=== PATIENT | male | born 1950 | race Hispanic/Latino ===

== ENCOUNTER 2018-06-30 21:43 | Observation (INO) | payer MEDICARE ==
[2018-06-30 22:09] LABS: BASOPHILS % (AUTO) 0.4 % (0.0-5.0); EOSINOPHILS % (AUTO) 3.5 % (0.0-8.0); HEMATOCRIT 42.3 % (42-54); LYMPHOCYTES % (AUTO) 16.4 % (21.0-51.0); MEAN CORPUSCULAR HEMOGLOBIN 29.6 pg (27.0-33.0); MEAN CORPUSCULAR VOLUME 89.8 fL (79-99); MONOCYTES % (AUTO) 5.8 % (3.0-13.0); NEUTROPHILS % (AUTO) 73.9 % (40.0-77.0); PLATELET COUNT (AUTO) 180 K/uL (130-400); RED BLOOD CELL COUNT(AUTO) 4.71 MIL/uL (4.50-6.20); RED CELL DISTRIBUTION WIDTH 14.2 % (11.0-15.5)
[2018-06-30 22:19] LABS: CREATININE 0.9 mg/dL (0.5-1.5)
[2018-06-30 22:23] LABS: ALBUMIN 3.8 g/dL (3.5-5.0); BILIRUBIN,TOTAL 0.6 mg/dL (0.2-1.0); TOTAL PROTEIN, SERUM 7.5 g/dL (6.0-8.3)
[2018-06-30 23:09] LABS: APPEARANCE,URINE Clear (CLEAR); BILIRUBIN,URINE Negative (NEGATIVE); COLOR,URINE Dark Yellow (YELLOW); GLUCOSE, URINE (UA) Negative (NEGATIVE); KETONES,URINE 15 mg/dL (NEGATIVE); LEUKOCYTE ESTERASE ,URINE Trace (NEGATIVE); NITRATE,URINE Negative (NEGATIVE); OCCULT BLOOD,URINE Negative (NEGATIVE); PH,URINE >=9.0 (5.0-8.0); PROTEIN,URINE POS 2+ (NEGATIVE)
[2018-06-30 23:10] LABS: BACTERIA,URINE None Seen /HPF (None Seen); MUCUS,URINE Rare LPF (None Seen); RBC,URINE None Seen /HPF (0-1); SQUAMOUS EPITHELIAL CELL,UR Rare /HPF (0-2); WBC,URINE 0-1 /HPF (0-1)
[2018-06-30] MEDS ORDERED: ONDANSETRON HCL 4 MG/2 ML VIAL ONE (23:39)
[2018-06-30] MEDS ORDERED: MORPHINE SULFATE 4 MG/1ML SYG ONE (23:39)
[2018-07-01] MEDS ORDERED: DIATR MEGLU/DIATRIZOATE SODIUM 30 ML BOTTLE ONE (01:37)
[2018-07-01] MEDS ORDERED: DILTIAZEM HCL 5 MG/ML 10 ML VIAL IV ONE (03:29)
[2018-07-01] MEDS ORDERED: LORAZEPAM 2 MG/ML 1 ML VIAL ONE (04:30)
[2018-07-01] MEDS ORDERED: 1/2 NORMAL SALINE 1,000 ML IV ONE (05:11)
[2018-07-01 06:19] LABS: BASOPHILS % (AUTO) 0.3 % (0.0-5.0); EOSINOPHILS % (AUTO) 0.9 % (0.0-8.0); HEMATOCRIT 41.9 % (42-54); LYMPHOCYTES % (AUTO) 6.4 % (21.0-51.0); MEAN CORPUSCULAR HEMOGLOBIN 29.7 pg (27.0-33.0); MEAN CORPUSCULAR VOLUME 89.8 fL (79-99); MONOCYTES % (AUTO) 5.9 % (3.0-13.0); NEUTROPHILS % (AUTO) 86.5 % (40.0-77.0); PLATELET COUNT (AUTO) 176 K/uL (130-400); RED BLOOD CELL COUNT(AUTO) 4.66 MIL/uL (4.50-6.20); RED CELL DISTRIBUTION WIDTH 13.9 % (11.0-15.5)
[2018-07-01 06:31] LABS: CREATININE 0.7 mg/dL (0.5-1.5); POTASSIUM 3.4 mmol/L (3.5-5.1)
[2018-07-01 06:35] LABS: ALBUMIN 3.4 g/dL (3.5-5.0); BILIRUBIN,TOTAL 1.1 mg/dL (0.2-1.0); MAGNESIUM 1.7 mg/dL (1.80-2.40); TOTAL PROTEIN, SERUM 6.9 g/dL (6.0-8.3)
[2018-07-01 06:52] LABS: INR 1.04 (0.85-1.15); PARTIAL THROMBOPLASTIN TIME 26.2 SEC (26.3-35.5); PROTHROMBIN TIME 10.9 SEC (9.6-11.6)
== END 2018-07-01 15:18 | disposition home or self-care (01) ==
LOC: EDH 21:43 → INTOOBSV 23:38 → EDHIP 23:38
PROVIDERS: ADMIT Internal Medicine; ATTEND Internal Medicine
DX: K56.609 Unspecified intestinal obstruction, unspecified as to partial versus complete obstruction (principal); I10 Essential (primary) hypertension; E78.5 Hyperlipidemia, unspecified; E11.9 Type 2 diabetes mellitus without complications; Z98.84 Bariatric surgery status
CPT/HCPCS: 36415 ×2; 74018; 74176; 80053 ×2; 81001; 83690 ×2; 83735; 84484; 85025 ×2; 85610; 85730; 93005 ×2; 99284; G0378 ×16; J2060; J2270; J2405; J3490; Q9963

== ENCOUNTER 2018-07-09 16:58 | Inpatient (IN) | payer MEDICARE | END 2018-07-11 19:00 | disposition home or self-care (01) | LOC: EDH 16:58 → EDHIP 20:52 → 3DH 22:35 | DX: K56.609 Unspecified intestinal obstruction, unspecified as to partial versus complete obstruction (principal); D72.829 Elevated white blood cell count, unspecified; I48.2 Chronic atrial fibrillation ==

== ENCOUNTER → 2018-09-16 | Outpatient (CLI) | payer MEDICARE ==
[~2018-09-16] MED LIST: ACET-66 PO; ASPI-1026 PO; LEVO500T2 PO; LISI-613 PO; METF500S7 PO; MONT10TA21 PO
== END | disposition home or self-care (01) ==
LOC: SHCH 07:34
PROVIDERS: ATTEND Internal Medicine Cardiovascular Disease
DX: I11.9 Hypertensive heart disease without heart failure (principal); E11.9 Type 2 diabetes mellitus without complications
CPT/HCPCS: 93306

== ENCOUNTER → 2018-10-29 | Outpatient (CLI) | payer MEDICARE ==
[~2018-10-29] MED LIST changes: +REGADENOSON 0.4 MG/5 ML PF SYG IVP SCH
== END | disposition home or self-care (01) ==
LOC: SHCH 07:51
PROVIDERS: ATTEND Internal Medicine Cardiovascular Disease
DX: I42.0 Dilated cardiomyopathy (principal)
CPT/HCPCS: 78452; 93017; 96374; A9500 ×2; J2785

== ENCOUNTER 2019-05-31 09:07 | Day surgery (SDC) | payer MEDICARE ==
[~2019-05-31] VITALS: Ht 180.3 cm; Wt 102.5 kg
[2019-05-31] VITALS (10 sets, daily range): BP systolic 105–136; BP diastolic 71–98
[~2019-05-31 09:07] MED LIST changes: -REGADENOSON 0.4 MG/5 ML PF SYG IVP SCH; +SODIUM CHLORIDE 0.9% 1000ML 1,000 ML IV ONE
[2019-05-31] MEDS ORDERED: L-LYSINE (11:18)
[2019-05-31] MEDS ORDERED: GINKGO (11:18)
[2019-05-31] MEDS ORDERED: BIOTINE (11:18)
[2019-05-31] MEDS ORDERED: [UNRECOGNIZED DRUG - OTHER] (11:18)
[2019-05-31] MEDS ORDERED: TESTOSTERONE (11:18)
[2019-05-31] MEDS ORDERED: FOLIC ACID (11:18)
[2019-05-31] MEDS ORDERED: CALCIUM 600 (11:18)
[2019-05-31] MEDS ORDERED: VIT E (11:18)
[2019-05-31] MEDS ORDERED: AMLODIPINE (11:18)
[2019-05-31] MEDS ORDERED: LUMIGAN (11:18)
[2019-05-31] MEDS ORDERED: IRON (11:18)
[2019-05-31] MEDS ORDERED: VIT D3 (11:18)
[2019-05-31] MEDS ORDERED: VICTOZA (11:18)
[2019-05-31] MEDS ORDERED: ASPI-555 PO (11:18)
[2019-05-31] MEDS ORDERED: XARELTO (11:18)
--- NOTE | 2019-05-31 11:30 | NUR ---
PATIENT DRANK 6 TO 8 OZ OF CHICKEN BROTH AND 6-8 OZ OF WHITE GRAPE JUICE, DR LAMBERT AND UNRULY NOTIFIED. PATIENT SAYS THAT IN JUNE 2018 HE FLAT LINE IN PATINUM.
[2019-05-31] MEDS ORDERED: PROPOFOL 10 MG/ML 20ML VIAL IV ONE (11:38)
== END 2019-05-31 13:22 | disposition home or self-care (01) ==
LOC: ENDO 09:07 → DAH 09:07 → ENDO 13:22
PROVIDERS: ATTEND Internal Medicine
DX: R19.7 Diarrhea, unspecified (principal); K57.30 Diverticulosis of large intestine without perforation or abscess without bleeding; K64.0 First degree hemorrhoids; K29.50 Unspecified chronic gastritis without bleeding; K21.0 Gastro-esophageal reflux disease with esophagitis; E11.9 Type 2 diabetes mellitus without complications; E66.01 Morbid (severe) obesity due to excess calories; G47.30 Sleep apnea, unspecified; M19.90 Unspecified osteoarthritis, unspecified site; K62.89 Other specified diseases of anus and rectum; K40.90 Unilateral inguinal hernia, without obstruction or gangrene, not specified as recurrent; I48.0 Paroxysmal atrial fibrillation; Z98.84 Bariatric surgery status; Z79.01 Long term (current) use of anticoagulants; Z79.84 Long term (current) use of oral hypoglycemic drugs; Z79.82 Long term (current) use of aspirin; Z79.899 Other long term (current) drug therapy; Z98.890 Other specified postprocedural states
CPT/HCPCS: 43239; 45380; 82948 ×2; 88305; A4215; A4221; A4222; A4223; A4606; A4620; A4663; J2704; J7030

== ENCOUNTER 2019-08-27 05:36 | Day surgery (SDC) | payer OTHER, MEDICARE ==
[~2019-08-27] VITALS: Ht 185.4 cm; Wt 103.3 kg
[~2019-08-27 05:36] MED LIST changes: +AMLODIPINE; -ASPI-1026 PO; +ASPI-556 PO; +BIOTINE; +CALCIUM 600; +FOLIC ACID; +GINKGO; +IRON; +L-LYSINE; -LEVO500T2 PO; +LUMIGAN; -SODIUM CHLORIDE 0.9% 1000ML 1,000 ML IV ONE; +TESTOSTERONE; +VICTOZA; +VIT D3; +VIT E; +XARELTO; +[UNRECOGNIZED DRUG - OTHER]
[2019-08-27] MEDS ORDERED: SODIUM CHLORIDE 0.9% 1000ML 1,000 ML IV ONE (06:23)
[2019-08-27 06:36] VITALS: BP 123/77
[2019-08-27] MEDS ORDERED: LIDOCAINE HCL 2% 20ML ONE (07:45)
[2019-08-27] MEDS ORDERED: PROPOFOL 10 MG/ML 20ML VIAL IV ONE (07:45)
[2019-08-27 08:19] VITALS: BP 126/54
== END 2019-08-27 08:51 | disposition home or self-care (01) ==
LOC: ENDO 05:36 → DAH 05:36 → ENDO 08:51
PROVIDERS: ATTEND Internal Medicine Gastroenterology
DX: R12 Heartburn (principal); K22.70 Barrett's esophagus without dysplasia; Z98.84 Bariatric surgery status; K21.0 Gastro-esophageal reflux disease with esophagitis; G47.30 Sleep apnea, unspecified; I10 Essential (primary) hypertension; E11.9 Type 2 diabetes mellitus without complications; M19.90 Unspecified osteoarthritis, unspecified site; E66.9 Obesity, unspecified; I48.0 Paroxysmal atrial fibrillation; Z88.3 Allergy status to other anti-infective agents; Z79.899 Other long term (current) drug therapy; Z87.891 Personal history of nicotine dependence; Z68.30 Body mass index [BMI] 30.0-30.9, adult; Z98.890 Other specified postprocedural states; Z79.82 Long term (current) use of aspirin; Z79.01 Long term (current) use of anticoagulants; Z90.49 Acquired absence of other specified parts of digestive tract; Z82.49 Family history of ischemic heart disease and other diseases of the circulatory system; Z83.3 Family history of diabetes mellitus
CPT/HCPCS: 43239; 82948 ×2; 88305; 88342; 93005; A4215; A4221; A4222; A4223; A4606; A4620; A4663; J2704; J3490; J7030

== ENCOUNTER → 2020-01-05 | Outpatient (CLI) | payer OTHER, MEDICARE | END | disposition home or self-care (01) | LOC: SHCH 14:38 | PROVIDERS: ATTEND Internal Medicine Cardiovascular Disease | DX: I65.23 Occlusion and stenosis of bilateral carotid arteries (principal) | CPT/HCPCS: 93880 ==

== ENCOUNTER → 2020-02-18 | Outpatient (CLI) | payer OTHER, MEDICARE | END | disposition home or self-care (01) | LOC: SHCH 08:32 | PROVIDERS: ATTEND Internal Medicine Cardiovascular Disease | DX: I42.0 Dilated cardiomyopathy (principal) | CPT/HCPCS: 93306; 93356 ==

== ENCOUNTER 2020-09-26 07:38 | Day surgery (SDC) | payer OTHER, MEDICARE ==
[2020-09-26] VITALS (8 sets, daily range): BP systolic 90–115; BP diastolic 61–74
[~2020-09-26] VITALS: Ht 180.3 cm; Wt 108.9 kg
[~2020-09-26 07:38] MED LIST changes: -LISI-613 PO; +LISI20TA24 PO; +SODIUM CHLORIDE 0.9% 1000ML 1,000 ML IV ONE
[2020-09-26] MEDS ORDERED: PHEN-615 PO (09:25)
[2020-09-26] MEDS ORDERED: TRAZ-187 PO (09:25)
[2020-09-26] MEDS ORDERED: PROPOFOL 10 MG/ML 20ML VIAL IV ONE (09:51)
== END 2020-09-26 10:45 | disposition home or self-care (01) ==
LOC: DAH 07:38 → ENDO 07:38
PROVIDERS: ATTEND Internal Medicine Gastroenterology
DX: K22.70 Barrett's esophagus without dysplasia (principal); K29.70 Gastritis, unspecified, without bleeding; K31.89 Other diseases of stomach and duodenum; K57.30 Diverticulosis of large intestine without perforation or abscess without bleeding; K40.90 Unilateral inguinal hernia, without obstruction or gangrene, not specified as recurrent; I10 Essential (primary) hypertension; E11.9 Type 2 diabetes mellitus without complications; Z98.84 Bariatric surgery status; I48.0 Paroxysmal atrial fibrillation; E66.9 Obesity, unspecified; M19.90 Unspecified osteoarthritis, unspecified site; K21.9 Gastro-esophageal reflux disease without esophagitis; Z98.890 Other specified postprocedural states; Z79.84 Long term (current) use of oral hypoglycemic drugs; Z79.01 Long term (current) use of anticoagulants; Z79.899 Other long term (current) drug therapy; Z20.828 Contact with and (suspected) exposure to other viral communicable diseases
CPT/HCPCS: 43239; 82948 ×2; 93005; A4215; A4221; A4222; A4223; A4606; A4620; A4663; C9803; J2704; J7030; U0003

== ENCOUNTER 2020-11-27 08:18 | Emergency (ER) | payer OTHER, MEDICARE ==
[~2020-11-27] VITALS: Ht 177.8 cm; Wt 106.6 kg
[~2020-11-27 08:18] MED LIST changes: +PHEN-615 PO; -SODIUM CHLORIDE 0.9% 1000ML 1,000 ML IV ONE; +TRAZ-187 PO
[2020-11-27] MEDS ORDERED: HYDROMORPHONE 1 MG INJ IVP SCH (08:30)
[2020-11-27] MEDS ORDERED: DEXAMETHASONE 4 MG TAB PO SCH (08:30)
[2020-11-27] MEDS ORDERED: LORAZEPAM 2 MG/ML 1 ML VIAL IVP SCH (08:30)
[2020-11-27] MEDS ORDERED: 0.9%NACL 1000ML 1,000 ML IV SCH (08:30)
[2020-11-27] MEDS ORDERED: KETOROLAC 30MG VIAL (30MG/ML) IVP SCH (08:30)
[2020-11-27 08:54] LABS: BASOPHILS % (AUTO) 0.2 % (0.0-5.0); EOSINOPHILS % (AUTO) 3.1 % (0.0-8.0); HEMATOCRIT 40.7 % (42-54); LYMPHOCYTES % (AUTO) 14.4 % (21.0-51.0); MEAN CORPUSCULAR HEMOGLOBIN 29.8 pg (27.0-33.0); MEAN CORPUSCULAR HGB CONC 33.7 g/dL (32.0-36.0); MEAN CORPUSCULAR VOLUME 88.5 fL (79-99); MONOCYTES % (AUTO) 6.3 % (3.0-13.0); NEUTROPHILS % (AUTO) 75.6 % (40.0-77.0); PLATELET COUNT (AUTO) 186 K/uL (130-400); RED CELL DISTRIBUTION WIDTH 13.7 % (11.0-15.5)
[2020-11-27 09:08] LABS: ALBUMIN 3.2 g/dL (3.5-5.0); BILIRUBIN,TOTAL 0.8 mg/dL (0.2-1.0); CREATININE 0.8 mg/dL (0.5-1.5); POTASSIUM 3.6 mmol/L (3.5-5.1)
[2020-11-27 09:11] VITALS: BP 126/76
[2020-11-27 13:03] VITALS: BP 121/76
[2020-11-27] MEDS ORDERED: METH-662 PO (13:34)
[2020-11-27 14:50] VITALS: BP 137/76
== END 2020-11-27 15:16 | disposition home or self-care (01) ==
LOC: EDBD 08:18 → EDH 08:18
DX: M54.32 Sciatica, left side (principal); E86.0 Dehydration; Z91.041 Radiographic dye allergy status; Z79.01 Long term (current) use of anticoagulants; Z79.82 Long term (current) use of aspirin; Z79.899 Other long term (current) drug therapy; Z79.84 Long term (current) use of oral hypoglycemic drugs
CPT/HCPCS: 36415; 80053; 85025; 96361; 96374; 96375; 99284; J1170; J1885; J2060; J7030; J8540 ×2

== ENCOUNTER → 2020-12-04 | Outpatient (CLI) | payer OTHER, MEDICARE ==
[~2020-12-04] MED LIST changes: +METH-662 PO
== END | disposition home or self-care (01) ==
LOC: PAH 09:57
PROVIDERS: ATTEND Family Medicine
DX: M51.36 Other intervertebral disc degeneration, lumbar region (principal); M47.816 Spondylosis without myelopathy or radiculopathy, lumbar region; M54.32 Sciatica, left side; M25.78 Osteophyte, vertebrae; M41.85 Other forms of scoliosis, thoracolumbar region
CPT/HCPCS: 72100; 73552; 73590

== ENCOUNTER → 2021-01-24 | Outpatient (CLI) | payer OTHER, MEDICARE | END | disposition home or self-care (01) | LOC: RAH 07:52 | PROVIDERS: ATTEND Family Medicine | DX: R94.5 Abnormal results of liver function studies (principal); R16.0 Hepatomegaly, not elsewhere classified; Z90.49 Acquired absence of other specified parts of digestive tract | CPT/HCPCS: 76700 ==